=== PATIENT | female | born 1995 | race Caucasian/White ===

== ENCOUNTER 2020-09-02 15:47 | Emergency (ER) | payer OTHER ==
[~2020-09-02] VITALS: Ht 177.8 cm; Wt 131.8 kg
[2020-09-02] MEDS ORDERED: ACETAMINOPHEN 500 MG TABLET PO ONE (16:15)
[2020-09-02] MEDS ORDERED: PERTUSS(ACELL),DIPH,TET VAC/PF 0.5 ML VIAL IM ONE (16:15)
[2020-09-02] MEDS ORDERED: SILVER SULFADIAZINE 1% 25 GM CREAM TP ONE (16:15)
[2020-09-02 17:11] VITALS: BP 139/62
== END 2020-09-02 17:15 | disposition home or self-care (01) ==
LOC: EMS 15:47
DX: T23.211A Burn of second degree of right thumb (nail), initial encounter (principal); X10.1XXA Contact with hot food, initial encounter; Y93.89 Activity, other specified; Y92.89 Other specified places as the place of occurrence of the external cause; Y99.8 Other external cause status
CPT/HCPCS: 16020; 90471; 90715